=== PATIENT | male | born 1945 | race Caucasian/White ===

== ENCOUNTER 2018-08-15 21:59 | Emergency (ER) | payer OTHER, MEDICAID ==
[~2018-08-15] VITALS: Ht 177.8 cm; Wt 69.0 kg
[2018-08-15 23:56] VITALS: BP 140/85
== END 2018-08-16 | disposition left against medical advice (07) ==
LOC: ER 22:02 → CANBEDREQ 08-16 04:04
DX: R41.82 Altered mental status, unspecified (principal); E11.9 Type 2 diabetes mellitus without complications; I10 Essential (primary) hypertension; F17.200 Nicotine dependence, unspecified, uncomplicated
CPT/HCPCS: 71045; 93005; 99284